=== PATIENT | female | born 1955 | race American Indian/Alaskan Native ===

== ENCOUNTER 2020-11-08 03:30 | Emergency (ER) | payer OTHER ==
[2020-11-08 03:43] VITALS: BP 131/80
--- NOTE | 2020-11-08 05:02 | Emergency Department Report ---
ED General Adult HPI - General Chief complaint: Overdose Stated complaint: RAPID HR REACTION TO MARIJUANA Time Seen by Provider: 11/08/20 04:58 Source: patient Mode of arrival: Ambulatory Limitations: No Limitations - History of Present Illness Initial comments: Patient is a 65-year-old female who presents status post ingesting marijuana gummy on last night. States she started to have palpitations and nausea. However symptoms have resolved at this time. No chest pain, no dizziness, no lightheadedness, no nausea, no vomiting, no back pain, no shortness of breath, no chest pain. Is alert oriented x3 patient is amatory without shortness of breath. Patient advises that she just wanted to come to the ED to get checked out. Patient is currently tolerating p.o. intake without symptoms. There is no other complaint or exacerbating or relieving factor. - Related Data Allergies Allergy/AdvReac Type Severity Reaction Status Date / Time No Known Allergies Allergy Unverified 11/08/20 03:44 ED Review of Systems ROS: Stated complaint: RAPID HR REACTION TO MARIJUANA Other details as noted in HPI Constitutional: denies: chills, fever Eyes: denies: eye pain, eye discharge, vision change ENT: denies: ear pain, throat pain Respiratory: denies: cough, shortness of breath, wheezing Cardiovascular: palpitations. denies: chest pain Endocrine: no symptoms reported Gastrointestinal: nausea. denies: abdominal pain, vomiting, diarrhea Genitourinary: denies: urgency, dysuria, discharge Musculoskeletal: denies: back pain, joint swelling, arthralgia Skin: denies: rash, lesions Neurological: denies: headache, weakness, paresthesias, vertigo Psychiatric: anxiety. denies: depression Hematological/Lymphatic: denies: easy bleeding, easy bruising ED Past Medical Hx - Past Medical History Previous Medical History?: No - Surgical History Past Surgical History?: Yes Hx Appendectomy: Yes ED Physical Exam - General Limitations: No Limitations General appearance: alert, in no apparent distress - Head Head exam: Present: atraumatic, normocephalic - Eye Eye exam: Present: normal appearance, PERRL, EOMI Pupils: Present: normal accommodation - ENT ENT exam: Present: mucous membranes moist - Neck Neck exam: Present: normal inspection, full ROM. Absent: tenderness - Respiratory Respiratory exam: Present: normal lung sounds bilaterally. Absent: respiratory distress, wheezes, stridor, chest wall tenderness - Cardiovascular Cardiovascular Exam: Present: regular rate, normal rhythm, normal heart sounds. Absent: systolic murmur, diastolic murmur, rubs, gallop - GI/Abdominal GI/Abdominal exam: Present: soft, normal bowel sounds. Absent: distended, tenderness, bruit, hernia - Rectal Rectal exam: Present: deferred - Extremities Exam Extremities exam: Present: normal inspection, full ROM. Absent: tenderness - Back Exam Back exam: Present: normal inspection, full ROM. Absent: tenderness - Neurological Exam Neurological exam: Present: alert, oriented X3, CN II-XII intact, normal gait, reflexes normal. Absent: motor sensory deficit - Psychiatric Psychiatric exam: Present: normal affect, normal mood - Skin Skin exam: Present: warm, dry, intact, normal color. Absent: rash ED Course Vital Signs 11/08/20 03:42 Temperature 98.4 F Pulse Rate 102 H Respiratory 18 Rate Blood Pressure 131/80 O2 Sat by Pulse 97 Oximetry ED Medical Decision Making - Medical Decision Making Vital signs are normal at this time. Patient declines EKG patient declines further work-up. Patient appears well well-hydrated well-nourished with no acute distress sounds are clear throughout, there is no abdominal tenderness no dizziness or lightheadedness. Patient is tolerating p.o. intake without symptoms. Patient advised to return to emergency department should symptoms return or worsen. Patient DC'd in stable condition at this time. Advised to stop marijuana Gummies.. Critical care attestation.: If time is entered above; I have spent that time in minutes in the direct care of this critically ill patient, excluding procedure time. ED Disposition Clinical Impression: Stress, Recreational drug use Disposition: HOME / SELF CARE / HOMELESS Is pt being admited?: No Does the pt Need Aspirin: No Condition: Stable Instructions: What You Need to Know About Marijuana Use Additional Instructions: Stop recreational marijuana use. Referrals: PIERO GOMEZ MD [Referring] - 3-5 Days Forms: Work/School Release Form(ED) Time of Disposition: 05:04
== END 2020-11-08 05:45 | disposition home or self-care (01) ==
LOC: ED 03:30
DX: F43.9 Reaction to severe stress, unspecified (principal); F19.10 Other psychoactive substance abuse, uncomplicated; R00.2 Palpitations; R11.0 Nausea; Z90.49 Acquired absence of other specified parts of digestive tract
CPT/HCPCS: 99281